=== PATIENT | female | born 1975 | race Asian ===

== ENCOUNTER 2018-04-12 10:28 | Day surgery (SDC) | payer OTHER ==
[2018-04-11 10:43] VITALS: BMI 25.6
[2018-04-12] MEDS ORDERED: MIDAZOLAM HCL 2 MG/2 ML SINGLE DOSE VIAL ONE (11:59)
[2018-04-12] MEDS ORDERED: LIDOCAINE HCL/PF 2% SDV 5ML VIAL ONE (11:59)
[2018-04-12] MEDS ORDERED: PROPOFOL 20 ML ONE (11:59)
[2018-04-12] MEDS ORDERED: ONDANSETRON 4 MG/2 ML VIAL ONE ×2 (11:59→14:17)
[2018-04-12] MEDS ORDERED: DEXAMETHASONE SOD PHOSPHATE 4 MG/1 ML VIAL ONE (11:59)
[2018-04-12] MEDS ORDERED: BUPIVACAINE HCL/PF 2.5 MG/ML - 30 ML VIAL IJ ONE (12:20)
[2018-04-12] MEDS ORDERED: ONDANSETRON 4 MG/2 ML VIAL IVPUSH PRN (13:17)
[2018-04-12] MEDS ORDERED: oxyCODONE HCL 5 MG TABLET PO PRN ×2 (13:17)
[2018-04-12] MEDS ORDERED: DESFLURANE GAS 240 ML BOTTLE IH ONE (13:21)
[2018-04-12] MEDS ORDERED: LACTATED RINGERS SOLUTION 1,000 ML IV SCH (13:30)
[2018-04-12] MEDS ORDERED: BUPIVACAINE HCL/PF 0.25% (2.5MG/ML) 10 ML VIAL IJ ONE (13:38)
[2018-04-12] MEDS ORDERED: oxyCODONE HCL 5 MG TABLET ONE (15:34)
[2018-04-12 16:44] VITALS: PULSE 62
[2018-04-12 16:49] VITALS: BP 113/68; TEMP 98.2
--- NOTE | 2018-04-13 12:49 | EKG ---
Test Reason : Blood Pressure : / mmHG Vent. Rate : 061 BPM Atrial Rate : 061 BPM P-R Int : 136 ms QRS Dur : 084 ms QT Int : 420 ms P-R-T Axes : 051 032 056 degrees QTc Int : 422 ms NORMAL SINUS RHYTHM WITH SINUS ARRHYTHMIA NORMAL ECG NO PREVIOUS ECGS AVAILABLE Confirmed by OLIVIA SORENSON, MELBA ([id number]) on 04/13/2018 12:48:45 PM Referred By: Sea Johnson Confirmed By:MELBA BAKER MD
--- NOTE | 2018-04-17 17:25 | OP ---
DATE OF ADMISSION: 04/12/2018 PREOPERATIVE DIAGNOSIS: Left carpal tunnel syndrome. POSTOPERATIVE DIAGNOSIS: Left carpal tunnel syndrome. OPERATIVE PROCEDURE: Left endoscopic carpal tunnel release. ANESTHESIA: General. COMPLICATIONS: None. ESTIMATED BLOOD LOSS: Minimal. INDICATIONS FOR PROCEDURE: The patient is a 42-year-old female with the above finding, indicated for operative treatment. Risks, benefits, alternatives were discussed with patient at length. Proper informed consent was obtained. PROCEDURE: After proper identification of patient and correct operative site, patient brought to the operating room, placed supine on the table, prominences well padded. General anesthesia was provided. Left upper extremity was prepped and draped in usual sterile fashion. A well-padded tourniquet was placed over the sterile prep. Esmarch bandage to exsanguinate left upper extremity. Tourniquet was inflated to 250 mmHg. A transverse incision was made over the proximal wrist crease. Incision was taken sharply through the skin. Antebrachial fascia was divided, carpal canal was entered with an elevator, and soft tissue was freed from the undersurface of the transverse carpal ligament. Hamate finder dilators were used to prepare the canal, and the [employer] endoscopic carpal tunnel release system was inserted in the distal edge of the transcarpal ligament. The blade was deployed and the transverse carpal ligament was released. At all times throughout the procedure, excellent visualization was achieved and at no time was any soft tissue allowed to interpose between the blade and the undersurface of the transverse carpal ligament. Using a mini open approach, the distal 4 cm of antebrachial fascia were divided to provide a complete release of the median nerve at the wrist. The wound was irrigated with saline and repaired with a 4-0 Monocryl suture. Sterile dressings were applied. The patient was reversed from anesthesia and brought to the recovery room in stable condition. She tolerated procedure well. CHATO MCPHERSON M.D. [id number]
== END 2018-04-12 16:00 | disposition home or self-care (01) ==
LOC: FASU 10:28
PROVIDERS: ATTEND Orthopaedic Surgery Hand Surgery
PROC: 01N54ZZ Release Median Nerve, Percutaneous Endoscopic Approach (ICD-10-PCS; principal; 2018-04-12 12:00)
DX: G56.02 Carpal tunnel syndrome, left upper limb (principal)
CPT/HCPCS: 84703; 93005; 94760